=== PATIENT | male | born 1965 | race American Indian/Alaskan Native ===

== ENCOUNTER 2018-02-12 13:15 | Outpatient (CLI) | payer MEDICAID ==
[2018-02-12 14:13] LABS: Blood Urea Nitrogen 19 mg/dL (9-20)
--- NOTE | 2018-02-13 09:00 | Magnetic Resonance Report ---
MRI BRAIN WITHOUT AND WITH CONTRAST: 02/12/18 14:00:00 CLINICAL: Sensorineural hearing loss. TECHNIQUE: Routine brain sequences including axial diffusion, T1, FLAIR, gradient echo T2*, and coronal and axial T2 and sagittal T1 plus coronal and axial postcontrast T1 sequences on a 1.5 Nazanin magnet. In addition, thin section high-resolution coronal T2 and axial and coronal T1 postcontrast sequences of the ear were performed. 15.0 cc of Multihance was injected intravenously for the contrast portion of the exam and consent was obtained prior to the administration of the contrast. FINDINGS: Normal ventricles and sulci. No restricted diffusion and no abnormal signal. No mass or enhancing lesion. The IACs and the seventh and eighth nerves are intact. No hemorrhage, edema or extra-axial collection. Normal pituitary and optic chiasm. The brainstem and cerebellum are normal. Intact vascular flow voids. The orbits, sinuses and soft tissues are normal. Normal calvarium and skull base. IMPRESSION: Normal study with no evidence of acoustic neuroma.
== END 2018-02-12 13:16 | disposition home or self-care (01) ==
LOC: MRI 13:15
PROVIDERS: ATTEND Otolaryngology
DX: H90.42 Sensorineural hearing loss, unilateral, left ear, with unrestricted hearing on the contralateral side (principal)
CPT/HCPCS: 36415; 70553; 82565; 84520; A9577

== ENCOUNTER 2020-06-30 14:56 | Emergency (ER) | payer MEDICAID ==
[2020-06-30 15:21] VITALS: BP 145/91
== END 2020-06-30 16:38 | disposition left against medical advice (07) ==
LOC: ED 14:56
DX: M54.5 Low back pain (principal); R51 Headache; Z53.21 Procedure and treatment not carried out due to patient leaving prior to being seen by health care provider